=== PATIENT | female | born 1985 | race African-American/Black ===

== ENCOUNTER 2020-04-17 05:27 | Day surgery (SDC) | payer OTHER ==
[~2020-04-17] VITALS: Ht 165.1 cm; Wt 83.9 kg
[2020-04-17] VITALS (13 sets, daily range): BP systolic 97–127; BP diastolic 49–70
[~2020-04-17 05:27] MED LIST: BIKTARVY 50-201 EACH PO
[2020-04-17] MEDS ORDERED: celeBREX 200mg Cap **SURGERY PATIENTS ONLY ORAL ONE (06:00)
[2020-04-17] MEDS ORDERED: ceFAZolin 1gm IVPB IVPB ONE ×2 (06:00)
[2020-04-17] MEDS ORDERED: LR 1000ml ONE (07:00)
[2020-04-17] MEDS ORDERED: Labetalol 5mg/ml 20ml vial IV ONE (07:00)
[2020-04-17] MEDS ORDERED: NS Irrig 3000ml IRRIG ONE ×2 (07:00→08:08)
--- NOTE | 2020-04-17 07:07 | Pre-Procedure Note/Attestation ---
Pre-Procedure Note/Attestation Complete Prior to Procedure Planned Procedure: left Procedure Narrative: left ankle scope, and modified brostrom Indications for Procedure Pre-Operative Diagnosis: left ankle instability Attestation I attest that I discussed the nature of the procedure; its benefits; risks and complications; and alternatives (and the risks and benefits of such alternatives), prior to the procedure, with the patient (or the patient's legal software support representative). I attest that, if there was a reasonable possibility of needing a blood transfusion, the patient (or the patient's legal software support representative) was given the [facility] standardized written summary, pursuant to the [place] Blood Safety Act ([place] Health and Safety Code # 1645, as amended). I attest that I re-evaluated the patient just prior to the surgery and that there has been no change in the patient's H&P, except as documented below:none Kaushik Yañez MD Apr 17, 2020 07:07
[2020-04-17] MEDS ORDERED: Midazolam 2mg/2ml Inj IVP PRN (07:15)
[2020-04-17] MEDS ORDERED: Labetalol 5mg/ml 20ml vial IV PRN (07:15)
[2020-04-17] MEDS ORDERED: Ketorolac 30mg Inj IV PRN ×2 (07:15)
[2020-04-17] MEDS ORDERED: fentaNYL 100 mcg/2 mL IV PRN (07:15)
[2020-04-17] MEDS ORDERED: LORazepam Inj 2mg/ml 1ml IV PRN (07:15)
[2020-04-17] MEDS ORDERED: HYDROcodone/Acetamin 5/325 tab ORAL PRN ×2 (07:15→07:30)
[2020-04-17] MEDS ORDERED: Hydromorphone 0.5mg/0.5ml inj IVP PRN (07:15)
[2020-04-17] MEDS ORDERED: Meperidine 25mg/1ml Inj (FOR RIGORS ONLY) IV PRN (07:15)
[2020-04-17] MEDS ORDERED: Metoclopramide 10mg/2ml Inj IVP PRN (07:15)
[2020-04-17] MEDS ORDERED: Atropine Sulfate 0.4mg/ml inj IVP PRN (07:15)
[2020-04-17] MEDS ORDERED: Acetaminophen (Non formulary) 100 ML IV ONE (07:15)
[2020-04-17] MEDS ORDERED: LR 1000ml 1,000 ML IVLG SCH (07:15)
[2020-04-17] MEDS ORDERED: DiphenhydrAMINE 50mg/ml Inj IVP PRN (07:15)
[2020-04-17] MEDS ORDERED: HYDROcodone/Acetamin 7.5/325 tab ORAL PRN (07:15)
[2020-04-17] MEDS ORDERED: oxyCODONE HCL/Acetaminophen 5/325mg ORAL PRN (07:15)
--- NOTE | 2020-04-17 07:20 | Anethesia Preoperative Eval ---
Anesthesia Pre-op PMH/ROS General Date of Evaluation: Apr 17, 2020 Time of Evaluation: 07:18 Anesthesiologist: Kory ASA Score: ASA 3 Mallampati Score Class I : Soft palate, uvula, fauces, pillars visible Class II: Soft palate, uvula, fauces visible Class III: Soft palate, base of uvula visible Class IV: Only hard plate visible Mallampati Classification: Class II Surgeon: Pari Diagnosis: L Ankle Pain Surgical Procedure: L Ankle Arthroscopy Anesthesia History: none Family History: no anesthesia problems Allergies: Coded Allergies: No Known Allergies (Unverified , 04/10/20) Medications: see eMAR Patient NPO?: Yes Past Medical History Hematology/Immune: Reports: other - HIV Other: obesity - BMI 32 Anesthesia Pre-op Phys. Exam Physician Exam Last Vital Signs Date Time Temp Pulse Resp B/P (MAP) Pulse Ox O2 Delivery O2 Flow Rate FiO2 04/17/20 06:05 Room Air 04/17/20 06:05 98.6 110 18 127/70 100 Constitutional: NAD Neurologic: CN 2-12 intact Cardiovascular: RRR Respiratory: CTA Gastrointestinal: S/NT/ND Airway Exam Mallampati Score: Class II MO: full ROM: limited Teeth: missing, intact Anesthesia Pre-op A/P Labs Urine Test Test 04/17/20 05:40 Urine HCG, Qualitative Negative (NEGATIVE) Risk Assessment & Plan Assessment: ASA 3 Plan: GA, SED Status Change Before Surgery: No Pre-Antibiotics Dru Grams Ancef IV Given Within 1 Hr of Incision: Yes Time Given: 07:41 Garett Horn MD Apr 17, 2020 07:20
--- NOTE | 2020-04-17 07:21 | Immediate Post-Op Evaluation ---
Immediate Post-Op Evalulation Immediate Post-Op Evalulation Procedure: L Ankle Arthroscopy Date of Evaluation: Apr 17, 2020 Time of Evaluation: 09:49 IV Fluids: 1000 LR Blood Products: 0 Estimated Blood Loss: 50 Urinary Output: 0 Blood Pressure Systolic: 107 Blood Pressure Diastolic: 53 Pulse Rate: 94 Respiratory Rate: 16 O2 Sat by Pulse Oximetry: 100 Temperature (Fahrenheit): 100 Pain Score (1-10): 2 Nausea: No Vomiting: No Complications 0 Patient Status: awake, reacts, patent, none Hydration Status: adequate Dru Grams Ancef IV Given Within 1 Hr of Incision: Yes Time Given: 07:41 Garett Horn MD Apr 17, 2020 07:21
[2020-04-17] MEDS ORDERED: Sodium Chloride 10ml vial INJ ONE (07:22)
[2020-04-17] MEDS ORDERED: Lidocaine 1% MPF 10mg/ml 5ml ONE (07:22)
--- NOTE | 2020-04-17 07:22 | 48 Hour Post Anesthesia Eval ---
Post Anesthesia Evaluation Procedure: L Ankle Arthroscopy Date of Evaluation: Apr 17, 2020 Time of Evaluation: 12:11 Blood Pressure Systolic: 119 0: 74 Pulse Rate: 92 Respiratory Rate: 18 Temperature (Fahrenheit): 98 O2 Sat by Pulse Oximetry: 100 Airway: patent Nausea: No Vomiting: No Pain Intensity: 2 Hydration Status: adequate Cardiopulmonary Status: Stable Mental Status/LOC: patient returned to baseline Follow-up Care/Observations: 0 Post-Anesthesia Complications: 0 Follow-up care needed: ready to discharge Garett Horn MD Apr 17, 2020 07:22
[2020-04-17] MEDS ORDERED: Ropivacaine 5mg/ml Vial 30ml INJ ONE (07:24)
[2020-04-17] MEDS ORDERED: fentaNYL 100 mcg/2 mL IV ONE (07:24)
[2020-04-17] MEDS ORDERED: HYDROmorphone 1mg/ml Carpuject SUBQ PRN (07:30)
[2020-04-17] MEDS ORDERED: Tylenol #3 tab (300mg/30mg) ORAL PRN (07:30)
--- NOTE | 2020-04-17 09:19 | Brief Operative Note ---
Immediate Post Operative Note Operative Note Chief Complaint: left ankle instability Pre-op Diagnosis: left ankle instability Procedure: left ankle scope and modified brostrom Post-op Diagnosis: same as pre-op Findings: consistent w/pre-op dx studies Surgeon: md valentín Leather Crafter: madelaine mendosa Anesthesiologist: md bert Anesthesia: general Specimen: none Complications: none Condition: stable Fluids: ns Estimated Blood Loss: minimal Drains: none Implant(s) used?: Yes - biomet Kaushik Yñaez MD Apr 17, 2020 09:19
--- NOTE | 2020-04-17 11:00 | Operative Note - Dictated ---
DATE OF OPERATION: 04/17/2020 PREOPERATIVE DIAGNOSES: 1. Left ankle chronic sprain with scar tissue formation. 2. Left ankle instability. POSTOPERATIVE DIAGNOSES: 1. Left ankle extensive scar tissue in the medial lateral gutter. 2. 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 3. No evidence of peroneal tendon tear. PROCEDURE: 1. Left ankle arthroscopy and extensive intraarticular shaving. 2. Left ankle medial and lateral gutter debridement. 3. Left ankle open modified Brostrom procedure using single Biomet 2.9 mm JuggerKnot anchor anchor double loaded with two #2 FiberWire sutures placed in the fibula along with 1 [id number] repair of the anterior talofibular ligament using #2 FiberWire suture. SURGEON: Kaushik Yañez MD CAR DUMPER: Damaris Pepe PA-C ANESTHESIOLOGIST: Garett Horn MD ANESTHESIA: General LMA anesthesia. ESTIMATED BLOOD LOSS: Less than 20 mL. TOURNIQUET TIME: 60 minutes. COMPLICATIONS: None. BRIEF HISTORY: Patient is a pleasant 34-year-old female who has had ongoing ankle instability. Her ankle gave way on her and she continued to have chronic pain. The talus did not show any significant chondral damage. After full discussion of risks and benefits of surgery and complications associated with it including infection, bleeding, neurovascular complication, possibility of stiffness, possibility of pain, possibility of chronic pain, possibility of continued instability and giving away, possibility of limping, scar sensitivity, superficial peroneal nerve or sural nerve sensory losses, as well as other complications that may arise, she opted for surgical treatment as described above. OPERATIVE PROCEDURE: Patient was brought to the operating room table and was placed supine. All pressure points well padded. General LMA anesthesia was induced and the left leg was placed in a countertraction, well-padded. The left leg was prepped and draped in usual sterile fashion and was exsanguinated and tourniquet was inflated to 275 mmHg. External traction device was applied and ankle was placed in traction. An 18G needle was placed just medial to the anterior tibialis inside the joint and the joint was injected with 20 mL of ropivacaine. At this point, a medial portal was established just medial to the anterior tibialis and lateral portal was established under direct visualization. The patellar arthroscopy was initiated. The patellar joint was visualized. The lateral gutter was first visualized with extensive scar tissue in the lateral gutter. The anterior talofibular ligament was degenerated. The lateral talar dome was visualized. This was intact. The lateral tibial plafond and syndesmosis was intact. The central portion and medial portion of the talus was visualized. There was no chondral damage. There was no osteochondral defect. The tibial plafond was visualized and was intact. The scope was placed through notch of [facility] and posterior structures were visualized. The posterior tibiofibular ligaments were intact. The rest of the ligaments posteriorly were intact. There were no talar dome damage. The scope was then placed into the medial gutter. The medial gutter had extensive scar tissue. The deltoid ligament could not be visualized at this point but the talar neck was visualized. There was no bone spur underneath the anterior tibia. At this point, the shaver was placed through the lateral portal and the lateral gutter was completely opened and cleared. The scope could be placed in in the anterior aspect of the lateral gutter and could be seen all the way to the distal tip of the fibula. The anterior talofibular ligament was appeared to be degenerated. The scar tissue at the talar neck was removed and all debridement was performed in that fashion. At this point, the medial gutter was debrided using a shaver and the medial deltoid ligament was visualized and medial aspect of the medial malleolus was visualized and appeared to be intact. The medial gutter was completely opened. At this point, the scope was placed in the lateral portal and the lateral structures were visualized little bit more. There were no loose fragments or scar tissue. Once this was completed, care was given to the open Brostrom procedure. The scope was removed. An incision was made over the lateral aspect of the ankle at the tip of the fibula extending collinearly, anteriorly, and posteriorly over the peroneal tendon. The incision was taken through subcutaneous tissue. Care was given to retract the superficial structure and superficial sensory nerves. The dissection was taken down all the way to the tip of the fibula. There was evidence of extensive scar tissue and degeneration of the posterior talofibular ligament and calcaneofibular ligament. However, the anterior talofibular ligament had some good tissue although it was attenuated. At this point, the anterior talofibular ligament was divided. A [id number] #2 FiberWire stitch was placed anteriorly. More posteriorly, a single 2.9 mm JuggerKnot anchor was placed in the fibula and using double loaded sutures, the remnants of the calcaneofibular and posterior talofibular ligaments were attached back onto the tip of the fibula. These were tied and there was good stability of the ankle. The ligaments were tied in neutral position. At this point, the anterior drawer was checked and appeared to be excellent. The sutures were cut. The scope was placed through the lateral portal and the lateral structures were visualized. The lateral gutter was intact at this point and the lateral ligament appeared to be repaired back onto the tip of the fibula. The wounds were thoroughly irrigated using copious amount of fluid. The portal sites were closed using 2-0 nylon suture. Subcutaneous tissue was closed using 2-0 Vicryl suture. Skin was closed using 3-0 Monocryl suture. Patient was placed in a posterior splint with the sugar-tong and was taken to recovery room in stable condition. Tourniquet was deflated after the wound closure. All lap counts and instrument counts were correct. Kaushik Yañez M.D. DR: OLIVA JOB#: [id number] CC: [email or web address]
[2020-04-17] MEDS ORDERED: D5 1/2NS 1,000 ML IV SCH (17:00)
== END 2020-04-17 12:25 | disposition home or self-care (01) ==
LOC: SUR 05:27
DX: S93.492A Sprain of other ligament of left ankle, initial encounter (principal); L90.5 Scar conditions and fibrosis of skin; M25.372 Other instability, left ankle; X58.XXXA Exposure to other specified factors, initial encounter; Y92.9 Unspecified place or not applicable; B20 Human immunodeficiency virus [HIV] disease; E66.9 Obesity, unspecified; Z68.30 Body mass index [BMI] 30.0-30.9, adult
CPT/HCPCS: 27695; 29898; 81025; 94003; C1713; J0131; J0690; J1100; J2250; J2405; J2704; J2795; J3010; J7120; U0002; 94150